=== PATIENT | female | born 1985 | race Caucasian/White ===

== ENCOUNTER 2019-10-09 21:37 | Emergency (ER) | payer MEDICAID, SELFPAY ==
[~2019-10-09 21:37] MED LIST: Iopamidol 370 76% 100 ML VIAL ONE
[2019-10-09] MEDS ORDERED: Morphine 10 MG/ML VIAL ONE (21:59)
[2019-10-09] MEDS ORDERED: diphenhydrAMINE 50 MG/ML VIAL ONE (21:59)
[2019-10-09 22:08] LABS: Bilirubin Negative (Negative); Blood, Urine Negative (Negative); Clarity Cloudy (Clear); Glucose, Urine (Dipstick) Negative (Negative); Ketone, Urine Negative (Negative); Leukocyte Trace (Negative); Nitrite Negative (Negative); Protein, Urine (Dipstick) 30 mg/dL (Neg-Trace); Specific Gravity, Urine 1.015 (1.005-1.030)
[2019-10-09 22:09] LABS: Pregnancy Test - Urine (BHCG) Negative (Negative); Pregu Control Background? CLEAR/WHITE (CLR/WHITE); Pregu Control Bar Appear? YES (CONTROL BAR); Specific Gravity 1.015 (1.002-1.036); pH, Urine 8.5 (5.0-9.0)
[2019-10-09 22:13] LABS: Bacteria/HPF 1+ HPF (None Seen); RBC/HPF None Seen HPF (0-3); Squamous Epithelial 0-3 HPF (0-3); Transitional Epithelial 0-3 HPF (None Seen)
[2019-10-09 22:20] LABS: ALT (SGPT) 23 U/L (8-55); AST (SGOT) 16 U/L (5-34); Albumin 4.2 g/dL (3.5-5.0); Alkaline Phosphatase 66 U/L (40-110); Anion Gap 14 mmol/L (10-20); BUN (Urea Nitrogen) 9 mg/dL (7.0-18.7); Bilirubin, Total 1.3 mg/dL (0.2-1.2); Calc. Creatinine Clearance 0 mL/min (70-130); Calcium 9.4 mg/dL (7.8-10.44); Carbon Dioxide 26 mmol/L (22-29); Chloride 101 mmol/L (98-107); Estimated GFR-MDRD 73; Globulin 3.2 g/dL (2.4-3.5); Glucose 99 mg/dL (70-105); Lipase 72 U/L (8-78); Potassium 3.8 mmol/L (3.5-5.1); Protein, Total 7.4 g/dL (6.0-8.3); Sodium 137 mmol/L (136-145)
[2019-10-09] MEDS ORDERED: Ampicillin/Sulbactam 3 GM VIAL ONE (22:31)
[2019-10-09] MEDS ORDERED: Sodium Chloride 0.9% 100 ML ONE (22:31)
[2019-10-09 22:46] LABS: Hemoglobin 11.2 g/dL (12.0-16.0); Mean Corpuscular HGB CONC 31.4 g/dL (32.0-36.0); Mean Corpuscular Hemoglobin 30.1 pg (27.0-31.0); Mean Corpuscular Volume 95.8 fL (78.0-98.0); Mean Platelet Volume 7.2 fL (7.4-10.4); Platelet Count 299 thou/uL (130-400); RBC Distribution Width 12.1 % (11.5-14.5); Red Blood Cell (RBC) Count 3.71 mill/uL (4.20-5.40); White Blood Cell (WBC) Count 14.9 thou/uL (4.8-10.8)
[2019-10-09 23:06] LABS: Band 7 % (5-11); Lymphocytes 1 % (21-51); MDiff Complete? YES; Monocytes 1 % (0-10); Neutrophil 91 % (42-75); Platelet Morphology Comment Appears Adequate; RBC Morphology Normal
--- NOTE | 2019-10-10 07:11 | RAD ---
PORTABLE CHEST: Date: 10/09/2019 An AP portable film at 2200 hours shows a normal sized heart. There is no vascular congestion, edema, or pleural effusion. No definite lobar infiltrate was seen. A little haziness below the right hilum is probably not significant, but if pulmonary symptoms were present, then follow-up PA and lateral vi ews could be done. There is no free air beneath the diaphragm. IMPRESSION: No definite acute finding. POS: HOME
--- NOTE | 2019-10-10 07:22 | CT ---
PRELIMINARY READING/[facility]/EMERGENCY AFTER HOURS PROCEDURED CT abdomen and pelvis without contrast: Comparison: None Findings: No significant abnormality in the lung bases. Normal gallbladder. No biliary ductal dilatation. No hydronephrosis or symptomatic urinary calculus. The solid organs are otherwise unremarkable within the limits of a noncontrast study. No bowel obstruction, free fluid, free air, abscess or diverticulitis. There may be mild mesenteric e lio in the anterior abdomen. Calcification along the right pelvic sidewall is indeterminate. The appendix is not clearly visualize d. No abnormal pelvic mass. Normal urinary bladder. The cecum is redundant extending into the low rig ht pelvis. Lack of bowel contrast and lack of intra-abdominal fat limit evaluation. Impression: There may be mild mesenteric edema which is nonspecific. Correlate clinically for enteritis or perito nitis. No free air, or significant free fluid. The appendix is not clearly visualized. Appendicitis c annot be confirmed or excluded on this study. No definite inflammation in the right lower quadrant. Consider follow up or further evaluation if symptoms persist or progress. ELECTRONICALLY SIGNED BY: Joaquin Noriega MD Oct 09, 2019 11:09:03 PM CDT This report is intended for review by the ordering physician only, in accordance of law. If you recei ve this report in error, please call [facility] at [phone]. FINAL REPORT CT ABDOMEN AND PELVIS WITH AND WITHOUT CONTRAST: Date: 10/09/[address] of the abdomen and pelvis was done without oral and IV contrast as requested. Axial slices were acquired, followed by coronal and sagittal reconstructions. The lung bases are clear. There are no effusions. The liver, spleen, pancreas, adrenal glands, and ki dneys show no acute findings. There is about a 1.3 cm cyst in the upper pole of the left kidney. No r enal calcifications or signs of obstruction found. The aorta is normal in caliber. The gallbladder is slightly generous in size at 8.5 cm. On a few of the slices, there is a question o f a rim of a tiny amount of pericholecystic fluid, however, no gallstones seen and the gallbladder wa ll does not seem at all thick. There is no distention of bowel to suggest obstruction. No free air seen. No thickening of bowel wall . The appendix could not be identified due to lack of bowel contrast and paucity of body fat. The [facility] report suggested the possibility of mild mesenteric edema, but this finding is equivoca l. CT of the pelvis showed no pelvic masses or definite adnexal abnormalities. A right-sided pelvic calc ification is indeterminate in nature. No free fluid seen in the pelvis. IMPRESSION: 1. No acute abdominal or pelvic findings to explain the patient's pain. Appendix not clearly i dentified. 2. Equivocal tiny rim of fluid around a portion of the gallbladder, but no evidence of wall thi ckening or gallstones. Report in agreement with preliminary reading by [facility]. POS: HOME
[2019-10-10 22:55] LABS: Chlamydia by PCR Not Detected (NotDetected); GC by PCR DETECTED (NotDetected)
== END 2019-10-10 00:03 | disposition short-term general hospital (02) ==
LOC: BURERS 21:37
DX: N70.03 Acute salpingitis and oophoritis (principal); K65.9 Peritonitis, unspecified; F31.9 Bipolar disorder, unspecified; F20.9 Schizophrenia, unspecified; F43.10 Post-traumatic stress disorder, unspecified; F17.290 Nicotine dependence, other tobacco product, uncomplicated
CPT/HCPCS: 36415; 71045; 74178; 80053; 81003; 81015; 81025; 83605; 83690; 84443; 85025; 87040; 87086; 87480; 87491; 87510; 87591; 87660; 94760; 96361; 96365; 96375; J0290; J0295; J1200; J2270; J3490; Q9967